=== PATIENT | male | born 1990 | race Caucasian/White ===

== ENCOUNTER 2020-12-03 09:12 | Day surgery (SDC) | payer BC ==
[~2020-12-03] VITALS: Ht 167.6 cm; Wt 73.1 kg
[2020-12-03 10:07] VITALS: BP 130/89; PULSE 71; TEMP 97.9
[2020-12-03] MEDS ORDERED: IBU600 MG PO (12:07)
[2020-12-03] MEDS ORDERED: ULTRAM 50MG TAB50 MG PO (12:13)
[2020-12-03 12:45] VITALS: BP 128/79; PULSE 85; TEMP 97.7
--- NOTE | 2020-12-03 12:45 | NUR ---
Pt retuened via cart. Alert and oriented. Postop vitals started. Lap sites clean, dry and well approximated. Denies discomfort. Water and jello provided. Will com=ntinue to monitor.
[2020-12-03 13:00] VITALS: BP 114/60; PULSE 86
--- NOTE | 2020-12-03 13:00 | NUR ---
Pt sitting up in bed. Alert and oriented. Tolerating food and drink well. Reports mild discomfort near surgical site and agrees to try motrin.
[2020-12-03 13:15] VITALS: BP 119/75; PULSE 80
--- NOTE | 2020-12-03 13:15 | NUR ---
Pt sitting up in bed. Alert and oriented. Pt up to restroom, voided without difficulty.
--- NOTE | 2020-12-03 13:40 | NUR ---
Patient reports some pain relief after voiding and pain medication. D/C IV with no complications. Reviewed discharge instructions. Verbalized understanding. Instructed patient to dress and open door when ready.
--- NOTE | 2020-12-03 13:50 | NUR ---
Transported patient via wheelchair to personal vehicle to be driven home by .
== END 2020-12-03 13:50 | disposition home or self-care (01) ==
LOC: SDCO 09:12
DX: K40.90 Unilateral inguinal hernia, without obstruction or gangrene, not specified as recurrent (principal); Z20.822 Contact with and (suspected) exposure to COVID-19; Z98.52 Vasectomy status
CPT/HCPCS: C1781; J0690; J1100; J1885; J2405; J2704; J3010; J7120